=== PATIENT | female | born 1995 | race Caucasian/White ===

== ENCOUNTER → 2018-07-17 | Outpatient (CLI) | payer OTHER | LOC: ULTRA 08:30 | DX: N63.24 Unspecified lump in the left breast, lower inner quadrant (principal) ==

== ENCOUNTER → 2018-09-21 | Outpatient (CLI) | payer OTHER ==
--- NOTE | 2018-09-26 10:07 | PATH ---
[facility] [address] [place] [address] PATHOLOGY RPT PROCEDURE Name: GILA PAEZ Room #: REG Cindy Damon#: [id number] ������������������ Admission: 09/21/18 ������������������ Date of : 89 Discharge: Report #: [id number] Path Case #: [id number] [facility] Accession Number: [id number] . 01 Material submitted: . breast - LEFT BREAST MASS, 7:00, 3CMFN. Modifiers: left, 7:00 . 01 Clinical history: . Left breast mass . 02 Diagnosis: Breast, left breast 7:00 3 cm from nipple, ultrasound guided needle core biopsy: - Fibroadenoma. - Negative for atypia or malignancy. LBQ/09/25/2018 . 02 Comment: Surgeon/President slides of this case were co-reviewed by Dr. Chantal Morin who concurs with my diagnosis. (IUV/db; 09/25/2018) . 02 Electronically signed: . Elsy Austin MD, Pathologist NPI- [id number] . 01 Gross description: . Received in formalin labeled "Gila Paez, left breast mass 7:00, 3 cm FN," are multiple needle cores of yellow-arevalo fibrofatty tissue measuring 2.5 x 0.5 x 0.2 cm in aggregate dimensions. The tissue is submitted in its entirety in cassette A1 through A3. The cold ischemic time is 5 minutes. The total formalin fixation time is 29 hours and 15 minutes. (TSD; 09/21/2018) TOB/TOB . 02 Pathologist provided ICD-10: D24.2 . 02 CPT . 409787 Specimen Comment: A courtesy copy of this report has been sent to Specimen Comment: [phone], . Specimen Comment: Report sent to / DR CROOKS Performed at: [address] [facility] [address], [place], [place] [id number] MD Estrada Berry MD Phone: [phone] [place] [address] PATHOLOGY RPT PROCEDURE Name: GILA PAEZ Room #: REG FERNANDO Damon#: [id number] ������������������ Admission: 09/21/18 ������������������ Date of : [birth year] Discharge: Report #: [id number] Path Case #: [id number] Performed at: [address] [id number] MD Elsy Austin MD Phone: [phone]
== END | disposition home or self-care (01) ==
LOC: ULTRA 11:36
DX: D24.2 Benign neoplasm of left breast (principal)